=== PATIENT | female | born 1975 | race Caucasian/White ===

== ENCOUNTER 2023-07-26 20:07 | Emergency (ER) | payer OTHER, SELFPAY ==
[2023-07-26] MEDS ORDERED: fentaNYL 50 mcg/mL 1 mL Vial ONE ×2 (20:28→21:10)
[2023-07-26] MEDS ORDERED: Etomidate 40 MG (20 mL) VIAL ONE (20:54)
[2023-07-26] MEDS ORDERED: PROPOFOL 20 ML ONE ×2 (21:19→21:35)
[2023-07-26] MEDS ORDERED: Morphine 4 MG/ML VIAL ONE (22:24)
[2023-07-26] MEDS ORDERED: Ondansetron PF 4 MG/2 ML Vial ONE (22:24)
== END 2023-07-27 00:16 | disposition short-term general hospital (02) ==
LOC: CSHERS 20:07
DX: S73.034A Other anterior dislocation of right hip, initial encounter (principal); F17.210 Nicotine dependence, cigarettes, uncomplicated; V89.2XXA Person injured in unspecified motor-vehicle accident, traffic, initial encounter
CPT/HCPCS: 94760; J2270; J2405; J2704; J3010